=== PATIENT | female | born 1975 | race African-American/Black ===

== ENCOUNTER 2021-08-03 05:26 | Emergency (ER) | payer SELFPAY ==
[~2021-08-03] VITALS: Ht 152.4 cm; Wt 109.9 kg
[2021-08-03 07:45] VITALS: BP 132/73
== END 2021-08-03 08:21 | disposition home or self-care (01) ==
LOC: EMS 05:33
DX: S63.502A Unspecified sprain of left wrist, initial encounter (principal); I10 Essential (primary) hypertension; F17.210 Nicotine dependence, cigarettes, uncomplicated; F12.90 Cannabis use, unspecified, uncomplicated; V49.9XXA Car occupant (driver) (passenger) injured in unspecified traffic accident, initial encounter; Y93.89 Activity, other specified; Y92.89 Other specified places as the place of occurrence of the external cause; Y99.8 Other external cause status
CPT/HCPCS: 99283

== ENCOUNTER 2024-12-21 06:27 | Emergency (ER) | payer OTHER | END 2024-12-21 06:50 | disposition left against medical advice (07) | LOC: EMS 06:28 | DX: M25.532 Pain in left wrist (principal); Z53.21 Procedure and treatment not carried out due to patient leaving prior to being seen by health care provider ==